=== PATIENT | female | born 1975 | race African-American/Black ===

== ENCOUNTER 2018-05-07 10:35 | Emergency (ER) | payer MEDICAID ==
[~2018-05-07] VITALS: Ht 167.6 cm; Wt 79.0 kg
[2018-05-07] MEDS ORDERED: PROV10 IM (10:56)
[2018-05-07] MEDS ORDERED: HYDR12.529 PO (10:56)
[2018-05-07] MEDS ORDERED: IBUPROFEN 600MG TABLET PO ONE (15:00)
[2018-05-07 15:11] VITALS: BP 116/79
== END 2018-05-07 16:59 | disposition home or self-care (01) ==
LOC: ER 10:35
DX: S50.02XA Contusion of left elbow, initial encounter (principal); I10 Essential (primary) hypertension; M41.9 Scoliosis, unspecified; W01.0XXA Fall on same level from slipping, tripping and stumbling without subsequent striking against object, initial encounter; Y93.89 Activity, other specified; Y92.018 Other place in single-family (private) house as the place of occurrence of the external cause
CPT/HCPCS: 73080; 81025; 99283; A4565